=== PATIENT | male | born 1975 | race Caucasian/White ===

== ENCOUNTER 2019-01-30 08:21 | Emergency (ER) | payer BC, SELFPAY ==
[2019-01-30] MEDS ORDERED: Acetaminophen 500 MG TAB ONE (08:32)
[2019-01-30] MEDS ORDERED: Ketorolac Tromethamine 30 MG/ML VIAL ONE (08:40)
--- NOTE | 2019-01-30 09:09 | RAD ---
RADIOGRAPH CHEST 1 VIEW: Date: 01/30/19 Time: 0836 HOURS HISTORY: 43-year-old male with cough. COMPARISON: 03/29/14. FINDINGS: There is a new finding of a dense region of consolidation at the right mid-lower lung zone. The rest of the visualized lung hammonds are clear. No pneumothorax or pulmonary edema. Lateral costophrenic ang les are sharp. IMPRESSION: Region of consolidation of the right lung could either represent pneumonia or atelectasis. Recommend serial follow-up chest radiographs after treatment, beginning in 1 week, until complete res olution. VINITA [] POS: DIXIE
[2019-01-30] MEDS ORDERED: cefTRIAXone\\ROCEPHIN 2 GM VIAL ONE (09:38)
[2019-01-30 09:53] LABS: Hemoglobin 14.9 g/dL (14.0-18.0); Mean Corpuscular HGB CONC 35.4 g/dL (32.0-36.0); Mean Corpuscular Hemoglobin 30.5 pg (27.0-31.0); Mean Corpuscular Volume 86.3 fL (78.0-98.0); Mean Platelet Volume 7.7 fL (7.4-10.4); Platelet Count 266 thou/uL (130-400); RBC Distribution Width 11.7 % (11.5-14.5); White Blood Cell (WBC) Count 13.3 thou/uL (4.8-10.8)
[2019-01-30 10:00] LABS: ALT (SGPT) 18 U/L (8-55); AST (SGOT) 17 U/L (5-34); Albumin 3.7 g/dL (3.5-5.0); Alkaline Phosphatase 76 U/L (40-150); Anion Gap 13 mmol/L (10-20); BUN (Urea Nitrogen) 12 mg/dL (8.9-20.6); Bilirubin, Total 0.7 mg/dL (0.2-1.2); Calc. Creatinine Clearance 0 mL/min (70-130); Calcium 8.6 mg/dL (7.8-10.44); Carbon Dioxide 24 mmol/L (22-29); Chloride 100 mmol/L (98-107); Estimated GFR-MDRD 87; Globulin 3.1 g/dL (2.4-3.5); Glucose 105 mg/dL (70-105); Potassium 3.6 mmol/L (3.5-5.1); Protein, Total 6.8 g/dL (6.0-8.3); Sodium 133 mmol/L (136-145)
[2019-01-30 10:19] LABS: Band 23 % (5-11); Lymphocytes 22 % (21-51); MDiff Complete? YES; Monocytes 6 % (0-10); Neutrophil 48 % (42-75); RBC Morphology Normal; Reactive Lymphocytes 1 % (0-10)
[2019-01-30 11:17] LABS: Bilirubin Small (Negative); Blood, Urine Negative (Negative); Clarity CLEAR (Clear); Glucose, Urine (Dipstick) Negative (Negative); Leukocyte Trace (Negative); Nitrite Negative (Negative); Protein, Urine (Dipstick) 30 mg/dL (Neg-Trace); Specific Gravity, Urine 1.026 (1.002-1.036)
[2019-01-30 11:20] LABS: Bacteria/HPF None Seen HPF (None Seen); Hyaline Casts/LPF 4-6 HYALINE CAST LPF (0-3 Hyaline); Pathc Cast-AUWi Flag 0.54 (0-2.49); RBC/HPF 0-3 HPF (0-3); Squamous Epithelial 0-3 HPF (0-3)
== END 2019-01-30 11:39 | disposition home or self-care (01) ==
LOC: ERS 08:21
DX: J18.9 Pneumonia, unspecified organism (principal); F17.210 Nicotine dependence, cigarettes, uncomplicated
CPT/HCPCS: 36415; 71045; 80053; 81003; 81015; 85025; 87804; 96361; 96365; 96375; J0696; J1885

== ENCOUNTER 2019-02-01 10:30 | Inpatient (IN) | payer BC ==
[2019-02-01] MEDS ORDERED: Ketorolac Tromethamine 30 MG/ML VIAL ONE (11:04)
[2019-02-01] MEDS ORDERED: Ondansetron PF 4 MG/2 ML Vial ONE (11:04)
[2019-02-01 11:20] LABS: #Basophils 0.1 thou/uL (0.0-0.2); #Eosinphils 0.2 thou/uL (0.0-0.7); #Lymphocytes 2.7 thou/uL (1.20-3.40); #Monocytes 1.3 thou/uL (0.11-0.59); #Neutrophils 7.1 thou/uL (1.40-6.50); %Basophils 1.1 % (0.0-1.0); %Eosinophils 1.7 % (0.0-10.0); %Lymphocytes 23.4 % (21.0-51.0); %Monocytes 11.3 % (0.0-10.0); %Neutrophils 62.5 % (42.0-75.0); Hemoglobin 14.8 g/dL (14.0-18.0); Mean Corpuscular HGB CONC 33.9 g/dL (32.0-36.0); Mean Corpuscular Hemoglobin 29.8 pg (27.0-31.0); Mean Corpuscular Volume 87.9 fL (78.0-98.0); Mean Platelet Volume 7.4 fL (7.4-10.4); Platelet Count 293 thou/uL (130-400); RBC Distribution Width 11.8 % (11.5-14.5); Red Blood Cell (RBC) Count 4.95 mill/uL (4.70-6.10); White Blood Cell (WBC) Count 11.4 thou/uL (4.8-10.8)
[2019-02-01] MEDS ORDERED: cefTRIAXone\\ROCEPHIN 2 GM VIAL ONE (11:27)
--- NOTE | 2019-02-01 11:34 | RAD ---
FPA AND LATERAL VIEWS OF CHEST: History: cough COMPARISON: Portable exam of 01/30/2019 FINDINGS: Consolidation in the right mid-lower lung zone is again seen. The heart size is stable. The left lung is clear. No pneumothoraces or pleural effusions are seen. IMPRESSION: Stable exam. Continued follow-up is recommended after course of antibiotics.
[2019-02-01 11:53] LABS: ALT (SGPT) 21 U/L (8-55); AST (SGOT) 26 U/L (5-34); Albumin 3.8 g/dL (3.5-5.0); Alkaline Phosphatase 74 U/L (40-150); Anion Gap 13 mmol/L (10-20); BUN (Urea Nitrogen) 9 mg/dL (8.9-20.6); Bilirubin, Total 0.5 mg/dL (0.2-1.2); Calc. Creatinine Clearance 0 mL/min (70-130); Calcium 9.2 mg/dL (7.8-10.44); Carbon Dioxide 28 mmol/L (22-29); Chloride 101 mmol/L (98-107); Estimated GFR-MDRD Greater than 90; Globulin 3.2 g/dL (2.4-3.5); Glucose 85 mg/dL (70-105); Potassium 3.7 mmol/L (3.5-5.1); Sodium 138 mmol/L (136-145)
[2019-02-01] MEDS ORDERED: Azithromycin 500 MG VIAL ONE ×2 (12:13→12:14)
[2019-02-01] MEDS ORDERED: Cefepime 2 GM VIAL ONE (12:22)
[2019-02-01 12:52] LABS: Bilirubin Negative (Negative); Blood, Urine Negative (Negative); Clarity CLEAR (Clear); Glucose, Urine (Dipstick) Negative (Negative); Leukocyte Negative (Negative); Nitrite Negative (Negative); Protein, Urine (Dipstick) Trace mg/dL (Neg-Trace); Specific Gravity, Urine 1.018 (1.002-1.036); Urobilinogen 0.2 mg/dL (0.2-1.0); pH, Urine 6.5 (5.0-9.0)
[2019-02-01] MEDS ORDERED: Acetaminophen 325 MG TAB PO PRN (14:00)
[2019-02-01] MEDS ORDERED: Zolpidem Tartrate 5 MG TAB PO PRN (14:00)
--- NOTE | 2019-02-01 14:37 | HP ---
HISTORY OF PRESENT ILLNESS: [facility] admission for [facility]. Referred to the [facility] by [facility] for treatment failure pneumonia. The patient's illness started about 7 days ago. He reportedly passed out in his yard. He has had a cough for consider period of time, but it is worse. Five days ago, he developed body aches. Four days ago, he developed fever, chills, and sweats. Past few days prior to his first ER admission, he had nausea and vomiting. He was seen in the emergency room, given oral antibiotic. At that time, he was negative for the flu. White cell count was mildly elevated. He was given Augmentin. His nausea and vomiting have persisted. He has been unable to keep his medicines down. He has had some abdominal cramping and some diarrhea. He presented and was evaluated in the emergency room and referred to [facility] for acute respiratory failure and treatment failure pneumonia. PAST MEDICAL HISTORY: None. MEDICATIONS: None except the Augmentin for the past 2 days. ALLERGIES: NONE. PAST SURGICAL HISTORY: None. FAMILY HISTORY: Mother and father smoked, had COPD. Mother and a sister and multiple members of his family have diabetes. SOCIAL HISTORY: , , next of kin. Full code status. Smokes 1 pack a day. Drinks 1 to 2 drinks 1 day a week. REVIEW OF SYSTEMS: GENERAL: See present illness. EYES: He has floaters. No double vision or flashing lights. ENT: No ear pain or drainage. No nasal bleeding. No trouble swallowing. CARDIAC: He has had some pleuritic pain with deep breathing. No heavy pressure or chest pain. No orthopnea. No paroxysmal nocturnal dyspnea. RESPIRATION: Cough and shortness of breath. No wheezing as described in the present illness. GASTROINTESTINAL: See present illness. Nausea and vomiting over the past 5 days, some diarrhea, some abdominal cramping. GENITOURINARY: No hematuria or dysuria. MUSCULOSKELETAL: No pain or swelling in his arms or legs. NEUROLOGIC: No strokes, seizures, or focal weakness. PSYCHIATRIC: No anxiety or depression. SKIN: No bruising, bleeding, or rash. HEME/LYMPH: No tender or swollen lymph nodes in axilla, inguinal, or cervical area. No petechial hemorrhages in mucous membranes or nail beds. PHYSICAL EXAMINATION: GENERAL: He is alert gentleman, no distress. Oriented x3. at bedside. VITAL SIGNS: Blood pressure 124/82, pulse is 77, respirations 19, temperature 98.8, and his O2 saturation was in the mid upper 80s on room air and it is 93 on 3 L of O2. HEENT: Examination of his head, eyes, ears, nose, and throat revealed pupils are equal, round, and reactive to light. Extraocular movements are intact. Sclerae are white. Tympanic membranes are clear. Nose is clear. Oral mucous membranes are wet. Dental hygiene is good. NECK: Supple without jugular venous distention, adenopathy, or thyromegaly. CHEST: Clear to percussion. He has rales over the lower third posterolaterally of his lung hammonds, otherwise clear. HEART: Regular rate and rhythm. First and second heart sounds are clear. No murmurs or gallops. ABDOMEN: Soft. Bowel sounds are normal. There is no hepatosplenomegaly. No mass. No rebound. No bruits. EXTREMITIES: Reveal no cyanosis, clubbing, or edema. PULSES: Carotid, radial, femoral, and dorsalis pedis pulses intact. SKIN: Warm and dry without bruises or rash. HEME/LYMPH: No tender or swollen lymph nodes in axilla, inguinal, or cervical area. NEUROLOGIC: Cranial nerves 2 through 12 are intact. Moves all extremities. LABORATORY DATA: CBC; white count 11.4, hemoglobin 14.8, and platelet count 293,000. Comprehensive metabolic profile is normal. No EKG is available, I will order 1. Chest x-ray, right lower lung field infiltrate on chest x-ray. No cardiomegaly or CHF. Insignificantly compared to x-ray done 2 days ago. ADMITTING DIAGNOSES: 1. Treatment failure pneumonia. 2. Acute respiratory failure with hypoxemia. 3. Tobacco abuse. 4. Nausea and vomiting. PLAN: IV antibiotics have been drawn. Start cefepime and Levaquin p.o. for treatment failure pneumonia. O2 for acute respiratory failure. IV fluids and antiemetics. The patient probably will be in the hospital 3 days with present illness. Job ID: [id number]
[2019-02-01 14:56] VITALS: BMI 35.6
[2019-02-01] MEDS: Sodium Chloride 0.9% 1,000 ML IV SCH ×2 (15:06→21:35)
[2019-02-01] MEDS ORDERED: Ondansetron ODT 4 MG TAB PO PRN (17:30)
[2019-02-01] MEDS: HYDROcodone/Acetaminophen 5/325 mg Tablet PO PRN (21:37)
[2019-02-01] MEDS: Cefepime 2 GM in Sodium Chloride 0.9% 100 ML IVPB SCH (23:51)
[2019-02-02 06:10] LABS: #Basophils 0.1 thou/uL (0.0-0.2); #Eosinphils 0.4 thou/uL (0.0-0.7); #Lymphocytes 3.3 thou/uL (1.20-3.40); #Monocytes 1.1 thou/uL (0.11-0.59); #Neutrophils 5.8 thou/uL (1.40-6.50); %Basophils 0.7 % (0.0-1.0); %Eosinophils 3.4 % (0.0-10.0); %Lymphocytes 31.1 % (21.0-51.0); %Monocytes 10.1 % (0.0-10.0); %Neutrophils 54.7 % (42.0-75.0); Hemoglobin 13.5 g/dL (14.0-18.0); Mean Corpuscular HGB CONC 33.7 g/dL (32.0-36.0); Mean Corpuscular Hemoglobin 30.2 pg (27.0-31.0); Mean Corpuscular Volume 89.4 fL (78.0-98.0); Platelet Count 279 thou/uL (130-400); RBC Distribution Width 11.9 % (11.5-14.5); Red Blood Cell (RBC) Count 4.46 mill/uL (4.70-6.10); White Blood Cell (WBC) Count 10.5 thou/uL (4.8-10.8)
[2019-02-02 06:30] LABS: Anion Gap 10 mmol/L (10-20); BUN (Urea Nitrogen) 11 mg/dL (8.9-20.6); Calc. Creatinine Clearance 154 mL/min (70-130); Calcium 8.4 mg/dL (7.8-10.44); Carbon Dioxide 28 mmol/L (22-29); Chloride 107 mmol/L (98-107); Estimated GFR-MDRD 87; Glucose 99 mg/dL (70-105); Potassium 4.1 mmol/L (3.5-5.1); Sodium 141 mmol/L (136-145)
[2019-02-02] MEDS: Sodium Chloride 0.9% 1,000 ML IV SCH ×2 (08:21→14:04)
[2019-02-02] MEDS: HYDROcodone/Acetaminophen 5/325 mg Tablet PO PRN (08:21)
[2019-02-02] MEDS ORDERED: Enoxaparin Sodium 40 MG/0.4 ML SYRINGE SC SCH (09:00)
[2019-02-02 10:54] LABS: Legionella Urinary Ag Negative (Negative)
[2019-02-02 10:55] LABS: Strep pneumo Urine Ag NEGATIVE (NEGATIVE)
[2019-02-02] MEDS: Cefepime 2 GM in Sodium Chloride 0.9% 100 ML IVPB SCH (13:03)
[2019-02-02] MEDS ORDERED: Sodium Chloride 0.9% 1,000 ML IV SCH (14:53)
--- NOTE | 2019-02-02 22:53 | PDOC.PN ---
- Subjective Encounter Start Date: 02/02/19 Encounter Start Time: 13:00 Patient seen and examined for Pneumonia. Feeling better. Productive cough +. No new complaints. No overnight events - Objective Resuscitation Status - Order Detail: 02/01/19 13:57 Resuscitation Status Routine Resuscitation Status: FULL: Full Resuscitation MAR Reviewed: Yes Vital Signs & Weight: Vital Signs (12 hours) Temp Pulse Resp BP BP Pulse Ox 02/02/19 20:00 98.2 F 68 20 156/94 H 96 02/02/19 16:00 97.8 F 55 L 20 126/78 96 02/02/19 12:00 97.9 F 60 18 94/60 95 Weight Weight 234 lb 1 oz I&O: 02/01/19 02/02/19 02/03/19 06:59 06:59 06:59 Intake Total 530 1950 Balance 530 1950 Result Diagrams: 02/02/19 05:08 02/02/19 05:08 Additional Labs: Laboratory Tests 01/30/19 02/02/19 02/02/19 09:20 10:26 10:26 WBC 13.3 H Ur L.pneumophila Ag Negative Ur Strep pneumoniae Ag NEGATIVE Radiology Reviewed by me: Yes (CXR - Pneumonia) Phys Exam - Physical Examination Constitutional: NAD Respiratory: no wheezing Right s Dx/Plan - Plan DVT proph w/SCDs 1. Acute hypoxic resp failure/Sepsis due to Pneumonia - failed out pt therapy ? Gram negative 2. Obesity BMI 35.6 3. Tobacco dep PLAN: Change Atbx to Ceftriaxone and Azithromycin Possible dc in 24-48 hr if stable Cont other meds as below Review of Systems - Review of Systems Cardiovascular: negative: chest pain, palpitations, orthopnea, paroxysmal nocturnal dyspnea, edema, light headedness, other Gastrointestinal: negative: Nausea, Vomiting, Abdominal Pain, Diarrhea, Constipation, Melena, Hematochezia, Other - Medications/Allergies Allergies/Adverse Reactions: Allergies Allergy/AdvReac Type Severity Reaction Status Date / Time No Known Drug Allergies Allergy Verified 02/01/19 14:48 Medications: Current Medications Acetaminophen (Tylenol) 650 mg PO Q4H PRN PRN Reason: Headache/Fever/Mild Pain (1-3) Hydrocodone Bitart/Acetaminophen ([place] 5/325) 1 tab PO Q4H PRN PRN Reason: Moderate Pain (4-6) Last Admin: 02/02/19 08:21 Dose: 1 tab Azithromycin (Zithromax) 250 mg PO DAILY [facility] Stop: 02/06/19 09:01 Cefepime HCl 2 gm/ Sodium (Chloride) 100 mls @ 200 mls/hr IVPB 1200,2359 [facility] Last Admin: 02/02/19 13:03 Dose: 100 mls Levofloxacin 750 mg/ Device 150 mls @ 100 mls/hr IVPB 1400 [facility] Last Admin: 02/02/19 14:02 Dose: 150 mls Ondansetron HCl (Zofran Odt) 4 mg PO Q6H PRN PRN Reason: Nausea/Vomiting Zolpidem Tartrate (Ambien) 5 mg PO HSPRN PRN PRN Reason: Insomnia Last Admin: 02/01/19 21:34 Dose: 5 mg
[2019-02-03] MEDS: Cefepime 2 GM in Sodium Chloride 0.9% 100 ML IVPB SCH ×2 (00:18→11:33)
[2019-02-03] MEDS ORDERED: Azithromycin 250 MG TAB PO SCH (09:00)
[2019-02-03 12:02] VITALS: BP 138/82; TEMP 97.7
--- NOTE | 2019-02-03 21:29 | DIS ---
DATE OF ADMISSION: 02/01/2019 DATE OF DISCHARGE: 02/03/2019 DISCHARGE DISPOSITION: Home. FOLLOWUP: 1. Follow up with primary care physician, Liudmila Johnson, in 1 week. 2. Repeat chest x-ray after 4 weeks is recommended. 3. Primary care physician advised to follow. ALLERGIES: NO KNOWN DRUG ALLERGIES. PATIENT WAS SEEN AND EXAMINED ON THE DAY OF DISCHARGE. DENIES ANY NEW COMPLAINTS. NO CHEST PAIN, SHORTNESS OF BREATH OR PALPITATIONS. DISCHARGE MEDICATIONS: 1. Azithromycin 500 mg daily, #4. 2. Omnicef 300 mg twice daily, #14. 3. Mucinex twice daily. BRIEF HOSPITAL COURSE: The patient is a 43-year-old male, who presented to the emergency room on 01 February 2019 with cough, shortness of breath and wheezing. Please note that patient was evaluated 2 days prior to this hospitalization in the emergency room for similar complaint. His initial vital signs in the emergency room showed temperature of 102.3 with respirations of 22, pulse rate of 107 with a blood pressure of 152/91. His chest x-ray at that time showed right-sided consolidation. He was discharged on Augmentin after 1 dose of IV ceftriaxone. However due to worsening symptoms, he presented to the emergency room. Please refer to the history and physical for further details. The patient was admitted to the hospital with a diagnosis of pneumonia. Please note that the patient had failed outpatient therapy. He was placed on cefepime and Levaquin by the admitting physician. He has been afebrile over the last 24 hours. His WBC count on the 30 January, was 13.3 with 23% bandemia. This admission his WBC count has improved to 10.5 without any bandemia. Urine strep pneumoniae and Legionella antigen were negative. Blood cultures and influenza testing negative. Urine cultures were negative as well. He also underwent a repeat chest x-ray that showed right mid lower lung zone consolidation. He appears stable for discharge. He was advised to return to emergency room, if he develops any new symptoms. He will also require a chest x-ray after 4 weeks. FINAL DIAGNOSES: 1. Community-acquired pneumonia, suspected gram-negative organism. 2. Acute hypoxic respiratory failure secondary to pneumonia, improved. 3. Sepsis secondary to pneumonia. The patient failed outpatient therapy. 4. Obesity with a body mass index of 35.6. 5. Tobacco dependence. PLAN: Plan of care was discussed with the patient in detail. He stated understanding. Job ID: [id number]
--- NOTE | 2019-02-05 17:48 | EKG ---
Test Reason : Blood Pressure : / mmHG Vent. Rate : 066 BPM Atrial Rate : 066 BPM P-R Int : 150 ms QRS Dur : 088 ms QT Int : 402 ms P-R-T Axes : 059 -15 033 degrees QTc Int : 421 ms Normal sinus rhythm Normal ECG No previous ECGs available Confirmed by FARAZ STOLL ([id number]) on 02/05/2019 5:47:44 PM Referred By: MIRIAM Confirmed By:FARAZ STOLL
== END 2019-02-03 12:04 | disposition home or self-care (01) | DRG 871 ==
LOC: ERS 10:30 → T4-A 14:16
PROVIDERS: ADMIT Internal Medicine; ATTEND Internal Medicine
DX: A41.50 Gram-negative sepsis, unspecified (principal); J15.6 Pneumonia due to other Gram-negative bacteria; J96.01 Acute respiratory failure with hypoxia; R65.20 Severe sepsis without septic shock; F17.210 Nicotine dependence, cigarettes, uncomplicated; E66.9 Obesity, unspecified; Z68.35 Body mass index [BMI] 35.0-35.9, adult
CPT/HCPCS: 36415; 71045; 71046; 80048; 80053; 81003; 81015; 83605; 85025; 87040; 87086; 87804; 87899; 93005; 93010; 96361; 96365; 96367; 96375; J0456; J0692; J0696; J1650; J1885; J1956; J2405; J7050

== ENCOUNTER 2019-08-02 14:33 | Outpatient (CLI) | payer OTHER ==
--- NOTE | 2019-08-03 09:25 | MRI ---
MRI RIGHT SHOULDER: Date: 08/02/19 PROVIDED CLINICAL HISTORY: Right shoulder pain. FINDINGS: There is low grade partial thickness undersurface tearing involving the anterior distal supraspinatus tendon at the footplate, with extension to involve the remainder of the conjoined tendon at the foot plate in a partial thickness, interstitial manner. The components of the rotator cuff appear otherwis e intact. The long head biceps tendon appears diminutive within its bicipital segment, with intact an d relatively normal caliber intraarticular segment noted. The glenoid labrum and glenohumeral articular cartilage are suboptimally evaluated in the absence of joint distention. There is linear T2 hyperintensity involving the posterior-superior glenoid labrum t hat may reflect nondisplaced tear. The amount of fluid within the glenohumeral joint appears physiologic. Acromioclavicular joint osteoarthrosis with conspicuous periarticular marrow signal alteration. Later al downsloping of the acromion with narrowing of the subacromial space. Slightly greater than physiol ogic subacromial subdeltoid bursal fluid. There is patchy signal alteration on fluid sensitive sequences involving a portion of the supraspinat us muscle near the musculotendinous junction. Regional marrow signal and muscular signal appear other charles normal. Rotator cuff muscular volume appears preserved. IMPRESSION: 1. Partial thickness tear involving the distal conjoined tendon as described. 2. Possible nondisplaced posterior-superior glenoid labral tear. Diminutive appearing long head jeevan ps tendon in the bicipital groove. 3. Acromioclavicular joint osteoarthrosis and lateral downsloping of the acromion. Conspicuous peria rticular marrow edema likely reflects stress reaction. 4. Signal alteration involving portions of the supraspinatus muscle in the region of the musculotend inous junction, presumably reflecting muscular strain. 5. Greater than physiologic subacromial subdeltoid bursal fluid may reflect changes of mild bursitis versus an occult full thickness component to the described tear. POS: OFF
== END 2019-08-02 14:34 | disposition home or self-care (01) ==
LOC: SCSMRI 14:33
PROVIDERS: ATTEND Family Medicine
DX: S49.91XA Unspecified injury of right shoulder and upper arm, initial encounter (principal); M19.011 Primary osteoarthritis, right shoulder; S46.911A Strain of unspecified muscle, fascia and tendon at shoulder and upper arm level, right arm, initial encounter

== ENCOUNTER 2019-08-13 19:30 | Emergency (ER) | payer BC ==
[~2019-08-13 19:30] MED LIST: ISOVUE-370 76%-LOCM 1 ML ONE
[2019-08-13 20:16] LABS: #Basophils 0.1 thou/uL (0.0-0.2); #Eosinphils 0.1 thou/uL (0.0-0.7); #Lymphocytes 3.8 thou/uL (1.20-3.40); #Monocytes 0.7 thou/uL (0.11-0.59); #Neutrophils 7.4 thou/uL (1.40-6.50); %Basophils 1.2 % (0.0-1.0); %Eosinophils 1.2 % (0.0-10.0); %Lymphocytes 30.9 % (21.0-51.0); %Neutrophils 60.8 % (42.0-75.0); Hemoglobin 17.9 g/dL (14.0-18.0); Mean Corpuscular HGB CONC 36.3 g/dL (32.0-36.0); Mean Corpuscular Volume 85.5 fL (78.0-98.0); Mean Platelet Volume 8.7 fL (7.4-10.4); Platelet Count 227 thou/uL (130-400); RBC Distribution Width 12.1 % (11.5-14.5); Red Blood Cell (RBC) Count 5.77 mill/uL (4.70-6.10); White Blood Cell (WBC) Count 12.2 thou/uL (4.8-10.8)
--- NOTE | 2019-08-13 20:23 | RAD ---
XR Chest 1 View Portable History: Chest pain Comparison: Radiograph January 30, 2019 Findings: Previously noted right middle lobe consolidation has improved. No focal confluent airspace consolidation, pneumothorax, or effusion. No acute osseous abnormality. Heart size upper limits of normal. Impression: Resolution of right middle lobe pneumonia. No acute intrathoracic abnormality.
[2019-08-13 20:40] LABS: ALT (SGPT) 152 U/L (8-55); AST (SGOT) 73 U/L (5-34); Albumin 4.5 g/dL (3.5-5.0); Alkaline Phosphatase 111 U/L (40-110); Anion Gap 12 mmol/L (10-20); BUN (Urea Nitrogen) 13 mg/dL (8.9-20.6); Bilirubin, Total 0.7 mg/dL (0.2-1.2); CK (CPK) 136 U/L (30-200); Calc. Creatinine Clearance 0 mL/min (70-130); Calcium 9.3 mg/dL (7.8-10.44); Carbon Dioxide 27 mmol/L (22-29); Chloride 101 mmol/L (98-107); Estimated GFR-MDRD 59; Globulin 2.8 g/dL (2.4-3.5); Glucose 182 mg/dL (70-105); Lipase 62 U/L (8-78); Potassium 3.6 mmol/L (3.5-5.1); Protein, Total 7.3 g/dL (6.0-8.3); Sodium 136 mmol/L (136-145)
[2019-08-13] MEDS ORDERED: Aspirin Chewable 81 MG TAB ONE (20:49)
--- NOTE | 2019-08-13 20:57 | CT ---
CTA Angio Chest W WO Con History: Chest pain and tachycardia Comparison: Chest radiograph same day Findings: CT angiogram chest performed after the intravenous administration of contrast. 3-D renderin g provided. No proximal segmental pulmonary arterial filling defect. No pericardial effusion. Aortic contour is n ormal. Limited evaluation of the upper abdomen is unremarkable. There are nodules along the right major fiss ure axial image 59 measuring up to 6 mm, likely reactive lymph nodes. No confluent pneumonia. Small bilateral hilar lymph nodes measure up to 8 mm short axis, likely reactive in nature. Sternum and manubrium are intact. No thoracic spine compression fracture. No displaced rib fracture. Impression: 1. No pulmonary embolism. 2. No evidence for pneumonia. 3. Likely reactive bilateral hilar lymph nodes.
--- NOTE | 2019-08-19 00:22 | EKG ---
Test Reason : Blood Pressure : / mmHG Vent. Rate : 107 BPM Atrial Rate : 107 BPM P-R Int : 134 ms QRS Dur : 080 ms QT Int : 328 ms P-R-T Axes : 054 -33 038 degrees QTc Int : 437 ms Sinus tachycardia Possible Left atrial enlargement Left axis deviation Pulmonary disease pattern No STEMI Abnormal ECG Confirmed by HAYDEE MORLEY ([id number]), map editor ANAHI ARNDT ([id number]) on 08/19/2019 12:21:44 AM Referred By: Confirmed By:HAYDEE MORLEY
== END 2019-08-13 22:12 | disposition home or self-care (01) ==
LOC: ERS 19:30
DX: R00.2 Palpitations (principal); F17.210 Nicotine dependence, cigarettes, uncomplicated; Z79.899 Other long term (current) drug therapy
CPT/HCPCS: 36415; 71045; 71275; 80053; 82550; 83690; 84484; 85025; 93005; 94760; 96360; Q9966

== ENCOUNTER 2019-12-07 17:39 | Observation (INO) | payer BC ==
[~2019-12-07 17:39] MED LIST changes: -ISOVUE-370 76%-LOCM 1 ML ONE; +Iopamidol-370 76% 500 ML 1 ML ONE
[2019-12-07] MEDS ORDERED: Dexamethasone 10 MG/ML VIAL ONE (18:57)
[2019-12-07] MEDS ORDERED: Ondansetron PF 4 MG/2 ML Vial ONE (18:57)
[2019-12-07] MEDS ORDERED: Acetaminophen 500 MG TAB ONE (18:57)
--- NOTE | 2019-12-07 18:59 | RAD ---
Chest AP view INDICATION: Cough COMPARISON: August 13, 2019 FINDINGS: Lungs:The lungs are clear Cardiac silhouette:Stable mild cardiomegaly Pulmonary vasculature:Normal Pleural spaces:No pleural effusion or pneumothorax is demonstrated. Upper abdomen:No abnormality seen. Osseous structures: No acute osseous abnormality. Additional findings:None. IMPRESSION: No acute cardiopulmonary abnormality.
[2019-12-07 22:47] LABS: #Lymphocytes 0.6 thou/uL (1.20-3.40); #Monocytes 0.2 thou/uL (0.11-0.59); #Neutrophils 5.3 thou/uL (1.40-6.50); %Basophils 0.5 % (0.0-1.0); %Eosinophils 0.3 % (0.0-10.0); %Lymphocytes 9.7 % (21.0-51.0); %Monocytes 2.5 % (0.0-10.0); Hemoglobin 15.5 g/dL (14.0-18.0); Mean Corpuscular HGB CONC 33.3 g/dL (32.0-36.0); Mean Corpuscular Hemoglobin 29.6 pg (27.0-31.0); Mean Platelet Volume 7.9 fL (7.4-10.4); Platelet Count 229 thou/uL (130-400); RBC Distribution Width 11.8 % (11.5-14.5); Red Blood Cell (RBC) Count 5.23 mill/uL (4.70-6.10)
[2019-12-07 23:11] LABS: ALT (SGPT) 112 U/L (8-55); AST (SGOT) 67 U/L (5-34); Alkaline Phosphatase 91 U/L (40-110); Anion Gap 14 mmol/L (10-20); BUN (Urea Nitrogen) 8 mg/dL (8.9-20.6); Bilirubin, Total 0.5 mg/dL (0.2-1.2); Calc. Creatinine Clearance 0 mL/min (70-130); Carbon Dioxide 22 mmol/L (22-29); Chloride 108 mmol/L (98-107); Estimated GFR-MDRD 90; Globulin 2.5 g/dL (2.4-3.5); Glucose 233 mg/dL (70-105); Lipase 50 U/L (8-78); Potassium 4.1 mmol/L (3.5-5.1); Protein, Total 6.5 g/dL (6.0-8.3); Sodium 140 mmol/L (136-145)
--- NOTE | 2019-12-07 23:15 | CT ---
CTA Angio Chest W WO Con 12/07/2019 10:29 PM Indication: 43-year-old male with cough, fever and congestion for several days with history of sinus infection Technique: Multiple CTA images were obtained of the thorax with IV contrast. 3-D rendering: MIP dimitry nstructed images were created and reviewed. Comparison: CT PE examination dated August 13, [address] the chest, abdomen and pelvis dated May Findings: Pulmonary arteries: No central or segmental pulmonary embolus is evident. Heart and Aorta: Normal appearing. Mediastinum:There are mildly prominent lymph nodes again seen within the mediastinum. One of the most prominent is in the subcarinal measures measuring 1.4 cm. There are enlarged hilar lymph nodes bilaterally which are also relatively stable. One of the largest seen within left suprahilar region m easuring 1.2 cm. Lungs:There is subsegmental volume loss involving both lower lobes. No confluent airspace opacity is evident. There is a 7 mm subpleural pulmonary nodule within the left lower lobe on image 63 of series 3 which is stable to the 2014 examination. There is subpleural nodularity within the right low er lobe, adjacent to the right major fissure on image 65 of series 3. The largest measures 6 mm. This is stable since 2014. There is some subpleural pulmonary nodule adjacent to the right minor fiss ure in the right upper lobe on image image 59 of series 3 which is also stable. There is centrilobular emphysema and paraseptal emphysema involving both upper lobes. Pleural space: Clear. Upper Abdomen: There is stable splenomegaly measuring 13.9 cm. Osseous Structures: No acute osseous abnormality. Soft tissues:No abnormality. Other findings:None. Impression: No central or segmental pulmonary embolus. Stable mildly prominent mediastinal and bilateral hilar lymph nodes. Stable subpleural nodularity affecting both lungs. Stable mild splenomegaly. Mild centrilobular and paraseptal emphysema involving both upper lobes. The constellation of findings are nonspecific. The enlarged lymph nodes in the mediastinum, hilar reg ion with subpleural nodularity within both lungs can be seen with entities such as sarcoidosis. Chronic lymphoma is felt to be less likely. Nonemergent pulmonary medicine follow-up may be helpful.
[2019-12-08] MEDS ORDERED: Acetaminophen 325 MG TAB PO PRN (01:55)
[2019-12-08] MEDS ORDERED: Ondansetron PF 4 MG/2 ML Vial IVP PRN (01:55)
[2019-12-08] MEDS ORDERED: Ondansetron ODT 4 MG TAB SL PRN (01:55)
[2019-12-08 02:33] VITALS: BMI 37.8
[2019-12-08] MEDS: Cefuroxime Axetil 250 MG TAB PO SCH ×2 (10:23→20:17)
[2019-12-08] MEDS: Oseltamivir 75 MG CAP PO SCH ×2 (10:23→20:17)
[2019-12-08] MEDS: guaiFENesin/DM ER PO SCH ×2 (10:55→20:17)
--- NOTE | 2019-12-08 14:49 | HP ---
CHIEF COMPLAINT: Fever and cough. 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 Apparently, he had a lot of congestion in his sinuses in the beginning of this illness, but his treatment helped a lot, but he was left only with the left ear stepped up. He did not have any abdominal pain. He did not have any chest pain, but he was short of breath. His son-in-law brought him to the emergency room. He does not really remember much from the emergency room from yesterday what happened. Decision was made about further treatment of his influenza positive illness and he got admitted to the hospital. He received steroids, IV fluids, and Tylenol in the emergency room along with the breathing treatment. PAST MEDICAL HISTORY: 1. Chronic back pain. 2. Pneumonia several times. 3. Rotator cuff injury on the right side. PAST SURGICAL HISTORY: Spinal surgery. SOCIAL HISTORY: He smokes 1 pack per day. He does not drink alcohol. He does not use any illicit drugs. FAMILY HISTORY: Father had COPD. Mother is not very well known to him. ALLERGIES: NONE. MEDICATIONS: None. REVIEW OF SYSTEMS: All 14 systems were reviewed and only those symptoms mentioned in the HPI are positive, the rest are negative. PHYSICAL EXAMINATION: VITAL SIGNS: Blood pressure is 141/77, pulse is 101, temperature is 98.1, respiratory rate is 20, and O2 saturation is 93% on 2 L by nasal cannula. His temperature was up to 102.9 in the emergency room, now it is down to 98. HEENT: His head is atraumatic and normocephalic. Eyes are PERRLA. Sclerae are nonicteric. Ears were examined by the emergency room physician and I am reading from ED note, left external ear with purulent drainage. Right external ear, normal. Tympanic membrane with bulging on the left, tympanic membrane injected on the left and tympanic membrane bulging on the right with some tympanic membrane injected on the right. The pharynx is injected bilaterally. LUNGS: Clear. HEART: S1 and S2 normal. No S3. No S4. No any murmur. ABDOMEN: Soft and nontender, somewhat obese. Bowel sounds are present. No organomegaly. EXTREMITIES: No clubbing, cyanosis, or edema. NEUROLOGICAL: He is alert and oriented x4. There is no any motor or sensory deficits. Cranial nerves are intact. LABORATORY DATA: White count of 6.0, hemoglobin of 15.5, hematocrit 46.6, and platelet count is 229,000. Sodium of 140, potassium 4.1, chloride 108, CO2 of 22, BUN 8, creatinine 0.93, glucose 233, AST 67, and ALT 112. IMAGING DATA: Chest x-ray, no acute cardiopulmonary abnormalities. CT angiogram of the chest showed no PE. Stable mildly prominent mediastinal and bilateral hilar lymph nodes and stable subpleural nodularity affecting both lungs along with stable mild splenomegaly and mild centrilobular and paraseptal emphysema involving both upper lobes. IMPRESSION: 1. Influenza A positive. 2. Upper respiratory tract infection with hypoxia. 3. Otitis media bilaterally. PLAN: Admission for observation. Condition is fair. Activity is bedrest and bathroom privileges. We will start him on Tamiflu. He received IV fluids in the emergency room. We will try to wean his oxygen off. We will keep him on heart-healthy diet with DVT prophylaxis and if he improves quickly and he does not have more fever and he does not require any oxygen, he should be able to go home in the next 24 hours. Job ID: [id number]
[2019-12-08] MEDS ORDERED: Meloxicam 15 MG TAB PO SCH (21:00)
[2019-12-08] MEDS ORDERED: Methocarbamol 500 MG TAB PO SCH (21:00)
[2019-12-09 06:16] LABS: #Basophils 0.1 thou/uL (0.0-0.2); #Lymphocytes 2.5 thou/uL (1.20-3.40); #Monocytes 0.9 thou/uL (0.11-0.59); #Neutrophils 3.2 thou/uL (1.40-6.50); %Basophils 1.6 % (0.0-1.0); %Eosinophils 0.3 % (0.0-10.0); %Lymphocytes 37.3 % (21.0-51.0); %Monocytes 13.8 % (0.0-10.0); Hemoglobin 15.9 g/dL (14.0-18.0); Mean Corpuscular Hemoglobin 27.8 pg (27.0-31.0); Mean Corpuscular Volume 89.6 fL (78.0-98.0); Mean Platelet Volume 8.3 fL (7.4-10.4); Platelet Count 221 thou/uL (130-400); Red Blood Cell (RBC) Count 5.73 mill/uL (4.70-6.10); White Blood Cell (WBC) Count 6.7 thou/uL (4.8-10.8)
[2019-12-09 06:34] LABS: Anion Gap 16 mmol/L (10-20); BUN (Urea Nitrogen) 10 mg/dL (8.9-20.6); Calc. Creatinine Clearance 161 mL/min (70-130); Calcium 8.5 mg/dL (7.8-10.44); Carbon Dioxide 25 mmol/L (22-29); Chloride 105 mmol/L (98-107); Estimated GFR-MDRD 86; Glucose 105 mg/dL (70-105); Potassium 3.8 mmol/L (3.5-5.1); Sodium 142 mmol/L (136-145)
[2019-12-09 07:51] VITALS: BP 125/81; TEMP 98.1
[2019-12-09] MEDS ORDERED: Meloxicam 15 MG TAB PO SCH (09:00)
[2019-12-09] MEDS ORDERED: Enoxaparin Sodium 40 MG/0.4 ML SYRINGE SC SCH (09:00)
[2019-12-09] MEDS: guaiFENesin/DM ER PO SCH (09:12)
[2019-12-09] MEDS: Oseltamivir 75 MG CAP PO SCH (09:12)
[2019-12-09] MEDS: Cefuroxime Axetil 250 MG TAB PO SCH (09:12)
--- NOTE | 2019-12-09 09:13 | DIS ---
DATE OF ADMISSION: 12/07/2019 DATE OF DISCHARGE: 12/09/2019 FINAL DIAGNOSES: At the time of discharge; 1. Upper respiratory tract infection, which turned out to be influenza A positive with hypoxia. 2. Bilateral otitis media. 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 He presented to the emergency room, where he was found to be hypoxic with pulse oximetry down to 84 on room air. Subsequently, the patient was placed on O2 and decision was made about hospitalization. His testing for flu type A came back positive, so he was started on IV fluids, got admitted to the hospital. Started on Tamiflu and oral antibiotic for possible bacterial bilateral otitis media, which was most likely from his previous sinus infection. His white count at the time of admission was 6.0, hemoglobin 15.5, hematocrit 46.6, and platelet count 229,000. His electrolytes were within normal limits and kidney function was normal. His AST was 67, ALT 112. Chest x-ray did not show any acute abnormalities and CT angiogram of the chest showed no PE and stable mildly prominent mediastinal and bilateral hilar lymph nodes and stable subpleural nodularity affecting both lungs with a stable mild splenomegaly and mild centrilobular and paraseptal emphysema involving both upper lobes. The patient did well. His oxygen was weaned off. He is doing fine. Blood pressure is 125/81, pulse is 76. Temperature is 98.1. He did not have any fever since the time of admission. His pulse oximetry is 91% on room air. Physical examination did not reveal any significant abnormalities. He is discharged home with recommendation to stay on heart-healthy diet. Activities, as tolerated. MEDICATIONS: At the time of discharge; 1. Ceftin 500 mg twice a day for the next 6 days. 2. Tamiflu 75 mg twice a day. 3. Meloxicam 15 mg once a day. 4. Robaxin 500 mg at bedtime. 5. Albuterol 2 puffs q.4 hours p.r.n. as needed. FOLLOWUP: He will follow up with his primary care physician in 1 week. Job ID: [id number]
== END 2019-12-09 09:23 | disposition home or self-care (01) ==
LOC: ERS 17:39 → T4-B 23:53
PROVIDERS: ADMIT Internal Medicine; ATTEND Internal Medicine
DX: J10.1 Influenza due to other identified influenza virus with other respiratory manifestations (principal); R09.02 Hypoxemia; H66.93 Otitis media, unspecified, bilateral; F17.210 Nicotine dependence, cigarettes, uncomplicated; G89.29 Other chronic pain; M54.9 Dorsalgia, unspecified
CPT/HCPCS: 36415; 71045; 71275; 80048; 80053; 83690; 83880; 85025; 85379; 87804; 94640; 96361; 96374; G0378; J1100; J2405; J7620; Q9967

== ENCOUNTER 2020-03-11 12:45 | Outpatient (CLI) | payer OTHER ==
[2020-03-11] MEDS ORDERED: Gadobenate Dimeglumine 529 MG/1 ML (5 ML VIAL) ONE (13:30)
[2020-03-11] MEDS ORDERED: Lidocaine 1% PF 5 ML VIAL ONE (13:30)
[2020-03-11] MEDS ORDERED: Iopamidol 300 61% 50 ML VIAL FS ONE (13:30)
[2020-03-11] MEDS ORDERED: EPINEPHrine 1 MG/ML AMP ONE (13:30)
--- NOTE | 2020-03-11 15:02 | RAD ---
Arthrogram right shoulder: HISTORY: 44-year-old male with ICD-10: M 75.111, incomplete tear of the right rotator cuff. Right shoulder rah n. Arthrogram performed for subsequent MR arthrogram. TECHNIQUE: Signed informed consent obtained. Anterior shoulder skin prepped and draped in usual sterile fashion. 25-gauge needle used to apply buffered lidocaine. 22-gauge spinal needle advanced under brief, intermittent fluoroscopy into the subcapsular space of the glenohumeral joint anterior-superior locat ion. Injection of total of 15 mL of normal saline solution containing MultiHance, Isovue, lidocaine, and epinephrine. 10 mL of this was injected into the glenohumeral joint subcapsular space while 5 mL entered tissues outside of the subcapsular space. Needle removed. Patient tolerated procedure well. No complications. Patient was taken to MRI. IMPRESSION: Successful right shoulder arthrogram. See separate report of subsequent MRI arthrogram of shoulder
--- NOTE | 2020-03-12 10:58 | MRI ---
MRI ARTHROGRAM RIGHT SHOULDER: DATE: 03/11/2020. PROVIDED CLINICAL HISTORY: Right shoulder pain. FINDINGS: There is high-grade partial thickness, near full thickness tearing of the entire width of the distal supraspinatus tendon at the footplate with retraction of fibers by about 3 cm maximally. There is hi gh-grade partial thickness undersurface tearing involving the anterior insertional fibers of the infr aspinatus tendon. The subscapularis and teres minor tendons appear intact. The long-head biceps ten don appears intact and normally located. Contrast material is noted superficial to the rotator cuff within the subacromial subdeltoid bursa region but is localized somewhat anteriorly suggesting this i s potentially iatrogenic. The glenoid labrum and glenohumeral articular cartilage appear normal. Acromioclavicular joint osteoarthrosis is demonstrated with lateral downsloping in the acromion. The acromiohumeral interval is about 7 mm. Rotator cuff muscular volume appears preserved. No focal concerning regional marrow or muscular sign al abnormality apparent. IMPRESSION: 1. At least high-grade partial thickness retracted undersurface tearing of the supraspinatus tendon involving its full width. Partial thickness undersurface tearing involving the infraspinatus tendon fibers distally is also noted. There is contrast material within the subacromial subdeltoid bursa, w hich could be iatrogenic or could reflect an occult full-thickness component to one of the tears. 2. Acromioclavicular joint osteoarthrosis and lateral downsloping in the acromion. POS: [facility]
== END 2020-03-11 12:46 | disposition home or self-care (01) ==
LOC: RAD 12:45
PROVIDERS: ATTEND Orthopaedic Surgery
DX: M75.111 Incomplete rotator cuff tear or rupture of right shoulder, not specified as traumatic (principal); S46.811A Strain of other muscles, fascia and tendons at shoulder and upper arm level, right arm, initial encounter; M19.011 Primary osteoarthritis, right shoulder
CPT/HCPCS: 23350; A9577; J0171; J2001; J7050; Q9967

== ENCOUNTER 2020-04-14 10:21 | Outpatient (CLI) | payer OTHER ==
[2020-04-14 13:33] LABS: #Basophils 0.2 thou/uL (0.0-0.2); #Eosinphils 0.2 thou/uL (0.0-0.7); #Monocytes 0.9 thou/uL (0.11-0.59); %Basophils 1.4 % (0.0-1.0); %Eosinophils 1.8 % (0.0-10.0); %Lymphocytes 32.3 % (21.0-51.0); %Monocytes 7.5 % (0.0-10.0); Hemoglobin 17.9 g/dL (14.0-18.0); Mean Corpuscular Hemoglobin 30.7 pg (27.0-31.0); Mean Corpuscular Volume 87.7 fL (78.0-98.0); Mean Platelet Volume 8.5 fL (7.4-10.4); Platelet Count 237 thou/uL (130-400); RBC Distribution Width 11.9 % (11.5-14.5); Red Blood Cell (RBC) Count 5.84 mill/uL (4.70-6.10); White Blood Cell (WBC) Count 12.3 thou/uL (4.8-10.8)
--- NOTE | 2020-04-14 14:10 | RAD ---
EXAM: CHEST TWO VIEWS: History: Pre-operative evaluation Comparison: 08-13-19, 12-07-2019 FINDINGS: Borderline heart size. No confluent pneumonia, overt edema, or pleural effusion or other acute proces s. IMPRESSION: Stable exam. No new process. POS: [facility]
[2020-04-14 15:17] LABS: Anion Gap 13 mmol/L (10-20); BUN (Urea Nitrogen) 11 mg/dL (8.9-20.6); Calc. Creatinine Clearance 0 mL/min (70-130); Calcium 9.4 mg/dL (7.8-10.44); Carbon Dioxide 23 mmol/L (22-29); Chloride 106 mmol/L (98-107); Estimated GFR-MDRD Greater than 90; Glucose 128 mg/dL (70-105); Potassium 4.3 mmol/L (3.5-5.1); Sodium 138 mmol/L (136-145)
[2020-04-14 20:18] LABS: SARS-CoV-2 MS2 Positive; SARS-CoV-2 N Gene Negative; SARS-CoV-2 S Gene Negative; SARS-CoV-2 orf1ab Negative
== END 2020-04-14 10:22 | disposition home or self-care (01) ==
LOC: LABBT 10:21
PROVIDERS: ATTEND Orthopaedic Surgery
DX: Z01.818 Encounter for other preprocedural examination (principal); Z11.59 Encounter for screening for other viral diseases; M75.111 Incomplete rotator cuff tear or rupture of right shoulder, not specified as traumatic
CPT/HCPCS: 71046; 80048; 85025; 87635; U0003

== ENCOUNTER 2020-04-17 05:52 | Day surgery (SDC) | payer OTHER ==
[2020-04-16 10:25] VITALS: BMI 22.8
[2020-04-17] MEDS ORDERED: Midazolam HCl 2 mg/2 ml Vial ONE (06:32)
[2020-04-17] MEDS ORDERED: Fentanyl 100 MCG/2 ML VIAL ONE ×2 (06:32→07:11)
[2020-04-17] MEDS ORDERED: Lidocaine 1% w/Epinephrine 1:100K 20 ML VIAL ONE (07:56)
[2020-04-17] MEDS ORDERED: Ondansetron PF 4 MG/2 ML Vial IVP PRN (09:13)
[2020-04-17] MEDS ORDERED: traMADol HCl 50 MG TAB PO PRN ×2 (09:13)
[2020-04-17] MEDS ORDERED: Ropivacaine 0.2% 550 ML 550 ML NERVE BLCK SCH (09:13)
[2020-04-17] MEDS ORDERED: HYDROcodone/Acetaminophen 5/325 mg Tablet PO PRN ×2 (09:13)
[2020-04-17] MEDS ORDERED: Promethazine HCl 25 MG/ML VIAL IM PRN (09:13)
[2020-04-17] MEDS ORDERED: Zolpidem Tartrate 5 MG TAB PO PRN (09:13)
--- NOTE | 2020-04-17 10:51 | OP ---
DATE OF PROCEDURE: 04/17/2020 PREOPERATIVE DIAGNOSIS: Right high-grade rotator cuff tear. POSTOPERATIVE DIAGNOSIS: Right high-grade rotator cuff tear. PROCEDURE PERFORMED: Right rotator cuff repair. SENIOR BOILER OPERATOR: None. ANESTHESIA: Dr. Nuñez. The patient received a general endotracheal intubation, interscalene block. ESTIMATED BLOOD LOSS: Less than 30 mL. TOURNIQUET TIME: None. IMPLANTS: 5.5 corkscrew, 4.75 SwiveLock. ANTIBIOTICS: Ancef 2 g. COMPLICATION: None. HISTORY OF PRESENT ILLNESS: Mr. Giles is a 44-year-old male, who was working in [employer] in July of last year and had a pop in the shoulder and had pain, he received some pain relief with an injection. He continued to have pain despite therapy, presented with MR arthrogram results, showing what was a high-grade near full-thickness rotator cuff tear of the supraspinatus. I discussed with the patient and family risks and benefits of an arthroscopic evaluation for repair, possible takedown of repair of a supraspinatus tear to include pain, scar, bleeding, infection, damage to vital structures, decreased range of motion and strength, continued pain despite surgical intervention, failure of repair, damage to nerves, arteries and tendons, loss of life or limb. The patient understood the risks and benefits of procedure, elected to proceed. DESCRIPTION OF PROCEDURE: Time-out was performed designating the patient's right upper extremity as the operative site based on site, consents, and marking. After time-out, the patient's right upper extremity was prepped and draped in a sterile fashion, placed in beach chair position and bony prominences well padded. The patient had a posterior working portal and anterior working portal. Looking within the joint, there was some synovitis and a sublabral foramen with no significant peel back. The biceps looked good through its course. The undersurface tear of the supraspinatus noted intra-articularly, which I debrided some of the capsule as well as some of the footprint of the tear intra-articularly. I saw there were no humeral defects or glenoid defects. There was some degenerative labral fraying anteriorly. The subscap looked good through its course. I then moved subacromially, debrided off all the bursa to expose the patient's shoulder. I found a soft spot in the rotator cuff, which fell into the tear. I created a footprint on the tuberosity to help with my repair, debriding soft tissue to help to get the bone. I placed the lateral cannula and used my anterior incision to help to move subacromially. I placed my awl, followed by tap and placed 5.5 corkscrew, passed four suture limbs anterior to posterior, tied 2 horizontal mattress sutures and placed a lateral 4.75 SwiveLock to help compress the cuff down. I felt like we had good overall compression and position of the cuff on the repair. I washed and closed with 3-0 nylon. The patient will begin elbow, wrist, and hand motion. Follow up with me in 2 weeks. Begin shoulder range of motion, passive. No active motion for 12 weeks. He will be sent home with pain block and hydrocodone for pain relief. Job ID: [id number]
[2020-04-17] MEDS ORDERED: Ropivacaine 0.5% HCl/PF (150 MG/30 ML VIAL) ONE (11:49)
[2020-04-17] MEDS ORDERED: PROPOFOL 200 MG/20 ML VIAL ONE (11:49)
[2020-04-17] MEDS ORDERED: Ketorolac Tromethamine 30 MG/ML VIAL ONE (11:49)
[2020-04-17] MEDS ORDERED: PHENYLEPHRINE-NS 100 MCG/ML 10 ML SYRINGE ONE (11:49)
[2020-04-17] MEDS ORDERED: Rocuronium Bromide 10 MG/ML (10ML VIAL) ONE (11:49)
[2020-04-17] MEDS ORDERED: Dexamethasone 20 MG/5 ML VIAL ONE (11:49)
[2020-04-17] MEDS ORDERED: EPHEDRINE 25 MG/5 ML SYRINGE ONE (11:49)
[2020-04-17] MEDS ORDERED: Ondansetron PF 4 MG/2 ML Vial ONE (11:49)
[2020-04-17] MEDS ORDERED: Lidocaine 1% PF 5 ML VIAL ONE (11:49)
[2020-04-17] MEDS ORDERED: Glycopyrrolate 0.2 MG/ML 5 ML SYRINGE ONE (11:49)
[2020-04-17] MEDS ORDERED: Ropivacaine 0.2% HCl/PF (40 MG/20 ML VIAL) ONE (11:49)
--- NOTE | 2020-04-17 14:02 | EKG ---
Test Reason : PREOP Blood Pressure : / mmHG Vent. Rate : 073 BPM Atrial Rate : 073 BPM P-R Int : 150 ms QRS Dur : 086 ms QT Int : 400 ms P-R-T Axes : 058 -28 036 degrees QTc Int : 440 ms Normal sinus rhythm Normal ECG Confirmed by KYLAH JACKMAN ([id number]) on 04/17/2020 2:01:43 PM Referred By: ANJU Confirmed By:KYLAH JACKMAN
== END 2020-04-17 11:50 | disposition home or self-care (01) ==
LOC: SDC 05:52
PROVIDERS: ATTEND Orthopaedic Surgery
DX: S46.011A Strain of muscle(s) and tendon(s) of the rotator cuff of right shoulder, initial encounter (principal); M65.811 Other synovitis and tenosynovitis, right shoulder; M62.838 Other muscle spasm; G89.18 Other acute postprocedural pain; F17.200 Nicotine dependence, unspecified, uncomplicated; Z79.1 Long term (current) use of non-steroidal anti-inflammatories (NSAID); X58.XXXA Exposure to other specified factors, initial encounter; Y99.0 Civilian activity done for income or pay
CPT/HCPCS: 93005; 93010; A4306; C1713; J0690; J1100; J1885; J2001; J2250; J2405; J2704; J2795; J3010

== ENCOUNTER 2021-02-06 20:16 | Emergency (ER) | payer BC, SELFPAY ==
[2021-02-06] MEDS ORDERED: Morphine 4 MG/ML VIAL ONE ×3 (20:51→22:04)
[2021-02-06] MEDS ORDERED: Ondansetron PF 4 MG/2 ML Vial ONE (20:51)
[2021-02-06] MEDS ORDERED: Bacitracin 1 PK ONE ×3 (22:14→22:36)
== END 2021-02-06 22:50 | disposition home or self-care (01) ==
LOC: ERS 20:16
DX: T21.22XA Burn of second degree of abdominal wall, initial encounter (principal); T23.201A Burn of second degree of right hand, unspecified site, initial encounter; F17.210 Nicotine dependence, cigarettes, uncomplicated; X58.XXXA Exposure to other specified factors, initial encounter
CPT/HCPCS: 16020; 96374; 96375; 96376; G0390; J2270; J2405

== ENCOUNTER 2022-06-03 11:35 | Outpatient (CLI) | payer OTHER | END 2022-06-03 11:36 | disposition home or self-care (01) | LOC: SCSMRI 11:35 | PROVIDERS: ATTEND Physician Assistant Medical | DX: S46.911A Strain of unspecified muscle, fascia and tendon at shoulder and upper arm level, right arm, initial encounter (principal); S43.431A Superior glenoid labrum lesion of right shoulder, initial encounter; M19.011 Primary osteoarthritis, right shoulder ==

== ENCOUNTER 2023-01-04 00:05 | Emergency (ER) | payer BC ==
[2023-01-04 01:27] LABS: #Basophils 0.1 thou/uL (0.0-0.2); #Eosinphils 0.1 thou/uL (0.0-0.7); #Lymphocytes 4.3 thou/uL (1.20-3.40); #Monocytes 0.9 thou/uL (0.11-0.59); #Neutrophils 9.1 thou/uL (1.40-6.50); %Basophils 0.7 % (0.0-1.0); %Eosinophils 0.8 % (0.0-10.0); %Lymphocytes 29.8 % (21.0-51.0); %Monocytes 5.9 % (0.0-10.0); %Neutrophils 62.9 % (42.0-75.0); Hemoglobin 17.2 g/dL (14.0-18.0); Mean Corpuscular HGB CONC 36.9 g/dL (32.0-36.0); Mean Corpuscular Hemoglobin 31.5 pg (27.0-31.0); Mean Corpuscular Volume 85.5 fl (78.0-98.0); Mean Platelet Volume 8.3 fL (7.4-10.4); Platelet Count 223 10x3/uL (130-400); RBC Distribution Width 11.9 % (11.5-14.5); Red Blood Cell (RBC) Count 5.46 mill/uL (4.70-6.10); White Blood Cell (WBC) Count 14.4 10x3/uL (4.8-10.8)
[2023-01-04] MEDS ORDERED: Metoprolol Tartrate 5 MG/5 ML VIAL ONE (01:36)
[2023-01-04 01:38] LABS: ALT (SGPT) 44 U/L (8-55); AST (SGOT) 24 U/L (5-34); Albumin 4.4 g/dL (3.5-5.0); Alkaline Phosphatase 101 U/L (40-110); Anion Gap 19 mmol/L (10-20); BUN (Urea Nitrogen) 12 mg/dL (8.9-20.6); Bilirubin, Total 0.6 mg/dL (0.2-1.2); Calc. Creatinine Clearance 0 mL/min (70-130); Calcium 9.4 mg/dL (7.8-10.44); Carbon Dioxide 17 mmol/L (22-29); Chloride 104 mmol/L (98-107); Estimated GFR 110; Globulin 2.8 g/dL (2.4-3.5); Glucose 197 mg/dL (70-105); Potassium 3.9 mmol/L (3.5-5.1); Protein, Total 7.2 g/dL (6.0-8.3); Sodium 136 mmol/L (136-145)
== END 2023-01-04 03:08 | disposition home or self-care (01) ==
LOC: ERS 00:05
DX: I49.3 Ventricular premature depolarization (principal); D72.829 Elevated white blood cell count, unspecified; I10 Essential (primary) hypertension; E11.9 Type 2 diabetes mellitus without complications; F17.210 Nicotine dependence, cigarettes, uncomplicated; Z79.84 Long term (current) use of oral hypoglycemic drugs; Z79.899 Other long term (current) drug therapy; Z79.82 Long term (current) use of aspirin
CPT/HCPCS: 36415; 71045; 80053; 84484; 85025; 93005; 96374

== ENCOUNTER 2023-02-15 18:44 | Emergency (ER) | payer BC ==
[2023-02-15 19:18] LABS: #Basophils 0.1 thou/uL (0.0-0.2); #Eosinphils 0.1 thou/uL (0.0-0.7); #Lymphocytes 3.5 thou/uL (1.20-3.40); #Monocytes 0.6 thou/uL (0.11-0.59); #Neutrophils 5.8 thou/uL (1.40-6.50); %Basophils 0.7 % (0.0-1.0); %Eosinophils 1.2 % (0.0-10.0); %Lymphocytes 34.6 % (21.0-51.0); %Monocytes 5.8 % (0.0-10.0); %Neutrophils 57.7 % (42.0-75.0); Hemoglobin 17.6 g/dL (14.0-18.0); Mean Corpuscular HGB CONC 35.3 g/dL (32.0-36.0); Mean Corpuscular Hemoglobin 29.8 pg (27.0-31.0); Mean Corpuscular Volume 84.5 fl (78.0-98.0); Platelet Count 245 10x3/uL (130-400); RBC Distribution Width 11.8 % (11.5-14.5); Red Blood Cell (RBC) Count 5.89 mill/uL (4.70-6.10)
[2023-02-15] MEDS ORDERED: Insulin Regular 300 UNITS/3 ML VIAL ONE (19:30)
[2023-02-15 19:53] LABS: ALT (SGPT) 35 U/L (8-55); AST (SGOT) 27 U/L (5-34); Albumin 4.4 g/dL (3.5-5.0); Alkaline Phosphatase 120 U/L (40-110); Anion Gap 22 mmol/L (10-20); BUN (Urea Nitrogen) 11 mg/dL (8.9-20.6); Bilirubin, Total 0.4 mg/dL (0.2-1.2); Calc. Creatinine Clearance 0 mL/min (70-130); Calcium 9.7 mg/dL (7.8-10.44); Carbon Dioxide 15 mmol/L (22-29); Chloride 99 mmol/L (98-107); Estimated GFR 81; Glucose 506 mg/dL (70-105); Potassium 4.3 mmol/L (3.5-5.1); Protein, Total 8.4 g/dL (6.0-8.3); Sodium 132 mmol/L (136-145)
[2023-02-15 20:38] LABS: Actual Bicarbonate (HCO3v) 20 mEq/L (22-28); Base Excess -3.6 mEq/L (-2.0 to +3.0); Calcium, Ionized (venous) 1.12 mmol/L (1.16-1.32); Chloride (VBG) 103 mmol/L (98-106); Hemoglobin (Hb) 16.6 g/dL (13.1-17.2); Potassium (VBG) 4.03 mmol/L (3.70-5.30); pH (venous) 7.39 (7.32-7.43)
== END 2023-02-15 21:59 | disposition home or self-care (01) ==
LOC: ERS 18:44
DX: E11.65 Type 2 diabetes mellitus with hyperglycemia (principal); I10 Essential (primary) hypertension; F17.210 Nicotine dependence, cigarettes, uncomplicated; Z79.82 Long term (current) use of aspirin; Z79.899 Other long term (current) drug therapy; Z79.84 Long term (current) use of oral hypoglycemic drugs
CPT/HCPCS: 36415; 36416; 71046; 80053; 82010; 82805; 83605; 83930; 84484; 85025; 93005; 96360; 96361; J1815